=== PATIENT | female | born 1970 | race Caucasian/White ===

== ENCOUNTER 2018-01-01 17:53 | Inpatient (IN) | payer OTHER ==
[~2018-01-01] VITALS: Ht 175.3 cm; Wt 93.5 kg
[2018-01-01 18:25] LABS: BASOPHIL % 0.5 % (0-2); PLATELET COUNT 341 x10^3mcL (130-400); RED CELL DISTRIBUTION WIDTH 13.9 % (11.5-14.5)
[2018-01-01 18:34] LABS: CALCIUM 8.7 mg/dL (8.5-10.1); CARBON DIOXIDE 27.5 mmol/L (21-32); CHLORIDE SERUM 105 mmol/L (98-107); CREATININE SERUM 0.8 mg/dL (0.6-1.0); GFR1 > 60 mL/min; GLUCOSE SERUM 104 mg/dL (74-106); POTASSIUM SERUM 3.7 mmol/L (3.5-5.1); SODIUM SERUM 141 mmol/L (136-145)
[2018-01-01 18:39] LABS: ALBUMIN 3.7 g/dL (3.4-5.0); ALKALINE PHOSPHATASE 55 U/L (46-116); ALT/SGPT 18 U/L (14-59); AST/SGOT 15 U/L (15-37); BILIRUBIN TOTAL 0.16 mg/dL (0.20-1.00); TOTAL PROTEIN, SERUM 7.3 g/dL (6.4-8.2)
[2018-01-01 18:40] LABS: CHOLESTEROL 216 mg/dL (<200)
[2018-01-01 18:58] LABS: microscopic required? NO
[2018-01-01 19:15] LABS: urine erythrocyte NEGATIVE (NEGATIVE)
[2018-01-01 19:24] LABS: AMPHETAMINE QUAL UR NONE DETECTED (NEG <=1000)
[2018-01-01 22:04] LABS: MAGNESIUM 2.1 mg/dL (1.8-2.4); PHOSPHOROUS 3.1 mg/dL (2.5-4.9)
[2018-01-01 22:05] LABS: CHOLESTEROL/HDL RATIO 3.7
[2018-01-01 22:14] LABS: FREE T4 0.85 ng/dL (0.76-1.46); FREE THYROXINE INDEX 2.1 ug/dL (1.4-4.5); T4(THYROXINE) 6.4 ug/dL (4.7-13.3)
[2018-01-01 22:16] LABS: T3 TOTAL 0.92 ng/mL
[2018-01-01 22:17] VITALS: BP 149/85
[2018-01-02 05:18] VITALS: BP 145/90
[2018-01-02 06:28] LABS: BASOPHIL % 0.5 % (0-2); PLATELET COUNT 368 x10^3mcL (130-400); RED CELL DISTRIBUTION WIDTH 13.8 % (11.5-14.5)
[2018-01-02 06:33] LABS: CALCIUM 8.6 mg/dL (8.5-10.1); CARBON DIOXIDE 24.4 mmol/L (21-32); CREATININE SERUM 0.8 mg/dL (0.6-1.0); GFR1 > 60 mL/min; GLUCOSE SERUM 96 mg/dL (74-106)
[2018-01-02 06:54] LABS: CHLORIDE SERUM 104 mmol/L (98-107); POTASSIUM SERUM 3.6 mmol/L (3.5-5.1); SODIUM SERUM 139 mmol/L (136-145)
[2018-01-02 10:00] VITALS: BP 128/77
[2018-01-02 14:02] VITALS: Ht 175.3 cm; Wt 93.5 kg
[2018-01-02 14:23] VITALS: BP 126/78
[2018-01-02 18:10] VITALS: BP 112/75
[2018-01-02 18:56] VITALS: BP 112/75
== END 2018-01-02 20:48 | disposition short-term general hospital (02) | DRG 756 ==
LOC: ED 17:53 → DU 21:23
PROVIDERS: Family Medicine; Specialist
DX: F44.5 Conversion disorder with seizures or convulsions (principal); F20.2 Catatonic schizophrenia; E02 Subclinical iodine-deficiency hypothyroidism; E78.5 Hyperlipidemia, unspecified; D64.9 Anemia, unspecified; K80.20 Calculus of gallbladder without cholecystitis without obstruction
CPT/HCPCS: 83880; 84439; G0480; J0780; J1885; J2060; J7030; Q0092; Q9967